=== PATIENT | male | born 1965 | race Caucasian/White ===

== ENCOUNTER 2017-07-16 05:45 | Day surgery (SDC) | payer BC ==
[2017-07-16] MEDS ORDERED: FENTAnyl 50 MCG/ML VIAL (08:05)
[2017-07-16] MEDS ORDERED: MIDAZOLAM 1 MG/ML 2 ML INJ ×2 (08:05→08:06)
== END 2017-07-16 12:35 | disposition home or self-care (01) ==
LOC: GIL 05:45
DX: Z12.11 Encounter for screening for malignant neoplasm of colon (principal); K57.90 Diverticulosis of intestine, part unspecified, without perforation or abscess without bleeding; K64.4 Residual hemorrhoidal skin tags; E11.9 Type 2 diabetes mellitus without complications; I10 Essential (primary) hypertension
CPT/HCPCS: 45378; 82962